=== PATIENT | female | born 1990 | race Caucasian/White ===

== ENCOUNTER 2022-07-20 01:22 | Emergency (ER) | payer OTHER ==
[~2022-07-20] VITALS: Ht 170.2 cm; Wt 92.0 kg
[~2022-07-20 01:22] MED LIST: LORTAB 5-325 MG1 TAB PO; NUVARING; ZOFRAN4 MG/TAB PO
[2022-07-20 01:34] VITALS: BP 141/90
[2022-07-20] MEDS ORDERED: KEFLEX500 MG PO (01:43)
[2022-07-20 02:04] LABS: HEMATOCRIT 34.4 % (37.0-47.0); HEMOGLOBIN 11.7 g/dl (12.0-16.0); IMMATURE GRANULOCYTES 0.4 % (0.0-5.0); MEAN CELL VOLUME 89.4 fL CALC (80.0-100.0); MEAN CORPUSCULAR HGB 30.4 pG CALC (26.0-32.0); NEUT# 7.18 thou/uL (2.00-7.15); RED BLOOD COUNT 3.85 mill/uL (4.20-5.60); RED CELL DISTRI WIDTH 11.9 % (11.5-15.5)
[2022-07-20 02:07] LABS: URINE BILIRUBIN - DIPSTICK NEGATIVE (NEGATIVE); URINE BLOOD DIPSTICK SMALL (NEGATIVE); URINE COLOR YELLOW; URINE GLUCOSE - DIPSTICK 250 mg/dL (NEGATIVE); URINE KETONE NEGATIVE (NEGATIVE); URINE PROTEIN - DIPSTICK NEGATIVE (NEG-TRACE); URINE UROBILINOGEN - DIPSTICK 0.2 E.U./dL (0.2)
[2022-07-20 02:17] LABS: ANION GAP 9 (6-22 (CALC)); BUN 7 mg/dL (7-17); BUN/CREATININE RATIO 12 (12-20 (CALC)); CARBON DIOXIDE 24 mmol/l (22-30); CHLORIDE 105 mmol/l (95-108); CREATININE 0.6 mg/dL (0.5-1.0); GFR FOR AFR.AMER. > 60 ML/MIN (>=60 (CALC)); GFR OTHER RACES > 60 ML/MIN (>=60 (CALC)); POTASSIUM 3.4 mmol/l (3.5-5.1); SGOT/AST 28 u/l (14-36); SODIUM 135 mmol/l (137-146); TOTAL PROTEIN 6.3 g/dL (6.3-8.2)
[2022-07-20 02:19] LABS: URINE LEUK ESTERASE NEGATIVE (NEGATIVE); URINE NITRITE - DIPSTICK NEGATIVE (Negative)
[2022-07-20 02:20] LABS: URINE BACTERIA FEW hpf; URINE EPITHELIAL CELLS FEW EPI/hpf (0-FEW); URINE MUCUS FEW hpf (NONE-FEW)
[2022-07-20 02:23] LABS: ALBUMIN 3.3 g/dL (3.2-5.0); ALKALINE PHOSPHATASE 143 u/l (38-126); BILIRUBIN, TOTAL 0.2 mg/dL (0.0-1.4)
[2022-07-20] MEDS ORDERED: BACTRIM DS1 TAB PO (02:36)
[2022-07-20 02:43] VITALS: BP 141/90
== END 2022-07-20 04:02 | disposition home or self-care (01) ==
LOC: ED 01:22
PROVIDERS: Family Medicine
DX: O23.40 Unspecified infection of urinary tract in pregnancy, unspecified trimester (principal); N39.0 Urinary tract infection, site not specified; O99.330 Smoking (tobacco) complicating pregnancy, unspecified trimester; F17.200 Nicotine dependence, unspecified, uncomplicated; Z3A.00 Weeks of gestation of pregnancy not specified

== ENCOUNTER 2024-10-12 17:07 | Emergency (ER) | payer SELFPAY ==
[~2024-10-12] VITALS: Ht 170.2 cm; Wt 72.0 kg
[~2024-10-12 17:07] MED LIST changes: +BACTRIM DS1 TAB PO; +KEFLEX500 MG PO
[2024-10-12 17:19] VITALS: BP 149/65
[2024-10-12] MEDS ORDERED: ONDANSETRON HCl 4 MG/2 ML SDV IV ONE (17:20)
[2024-10-12] MEDS ORDERED: SODIUM CHLORIDE 0.9% 1,000 ML IV ONE (17:20)
[2024-10-12] MEDS ORDERED: KETOROLAC TROMETHAMINE 15 MG/ML SDV IV ONE (17:35)
[2024-10-12 17:44] LABS: BASO% 0.3 % (0-3); EOS% 0.2 % (0-8); IMMATURE GRANULOCYTES 0.8 % (0.0-5.0); LYMPH% 3.9 % (15-41); MEAN CELL VOLUME 88.5 fL CALC (80.0-100.0); MEAN CORPUSCULAR HGB 29.9 pG CALC (26.0-32.0); MEAN CORPUSCULAR HGB CONC 33.8 g/dL CAL (32.0-36.0); MONO% 2.9 % (2-13); NEUT# 16.13 thou/uL (2.00-7.15); NEUT% 91.9 % (42-76); RED BLOOD COUNT 5.32 mill/uL (4.20-5.60); RED CELL DISTRI WIDTH 11.7 % (11.5-15.5)
[2024-10-12 17:46] LABS: HEMATOCRIT 47.1 % (37.0-47.0); HEMOGLOBIN 15.9 g/dl (12.0-16.0)
[2024-10-12 17:57] LABS: CREATININE 0.8 mg/dL (0.5-1.0); TOTAL PROTEIN 7.4 g/dL (6.3-8.2)
[2024-10-12 17:58] LABS: ALBUMIN 4.8 g/dL (3.2-5.0); BILIRUBIN, TOTAL 1.4 mg/dL (0.02-1.3); POTASSIUM 4.3 mmol/l (3.5-5.1)
[2024-10-12] MEDS ORDERED: ZOFRAN4 MG/TAB PO (18:30)
[2024-10-12 18:31] VITALS: BP 125/85
[2024-10-12 18:33] VITALS: BP 125/85
[2024-10-12] MEDS ORDERED: DICYCLOMINE HCL20 MG PO (19:15)
== END 2024-10-12 18:35 | disposition home or self-care (01) | DRG 392 ==
LOC: ED 17:07
PROVIDERS: Nurse Practitioner Family
DX: R11.2 Nausea with vomiting, unspecified (principal); R19.7 Diarrhea, unspecified; F17.200 Nicotine dependence, unspecified, uncomplicated
CPT/HCPCS: J1885; J2405